=== PATIENT | male | born 1980 | race African-American/Black ===

== ENCOUNTER 2018-07-05 21:26 | Emergency (ER) | payer SELFPAY ==
[~2018-07-05] VITALS: Ht 193 cm; Wt 100.0 kg
[2018-07-06] MEDS ORDERED: KETOROLAC TROMETHAMINE 60 MG/2 ML VIAL IM ONE (00:30)
[2018-07-06 02:31] VITALS: BP 131/67
== END 2018-07-06 02:40 | disposition home or self-care (01) ==
LOC: EMS 21:27
DX: S93.401A Sprain of unspecified ligament of right ankle, initial encounter (principal); F12.90 Cannabis use, unspecified, uncomplicated; X50.0XXA Overexertion from strenuous movement or load, initial encounter; Y93.67 Activity, basketball; Y92.89 Other specified places as the place of occurrence of the external cause; Y99.8 Other external cause status
CPT/HCPCS: 29515; 73610; 96372; 99283; J1885